=== PATIENT | female | born 1990 | race African-American/Black ===

== ENCOUNTER 2020-10-09 12:15 | Outpatient (CLI) | payer MEDICAID | END 2020-10-09 23:59 | disposition home or self-care (01) | LOC: COV 12:15 | PROVIDERS: ATTEND Family Medicine | DX: R53.83 Other fatigue (principal); M79.10 Myalgia, unspecified site; R68.83 Chills (without fever); R11.2 Nausea with vomiting, unspecified; Z20.828 Contact with and (suspected) exposure to other viral communicable diseases ==